=== PATIENT | female | born 1965 | race Two or more races ===

== ENCOUNTER 2016-09-07 11:05 | Outpatient (CLI) | payer BC ==
[2016-09-07 11:52] LABS: ALBUMIN 4.1 g/dL (3.4-5.0); BILIRUBIN,TOTAL 0.3 mg/dL (0.2-1.0); CREATININE 0.8 mg/dL (0.6-1.3); POTASSIUM 3.8 mmol/L (3.5-5.1); TOTAL PROTEIN, SERUM 8.5 g/dL (6.4-8.2)
[2016-09-07 11:54] LABS: BASOPHILS % (AUTO) 0.6 % (0.0-2.0); EOSINOPHILS # (AUTO) 0.1 /CMM (0.0-0.7); EOSINOPHILS % (AUTO) 1.2 % (0.0-6.0); HEMATOCRIT 41 % (33-45); HEMOGLOBIN 13.8 g/dL (11.5-14.8); LYMPHOCYTES # (AUTO) 2.2 /CMM (0.8-4.8); LYMPHOCYTES % (AUTO) 27.5 % (20.0-44.0); MEAN CORPUSCULAR HEMOGLOBIN 28 PG (26.0-33.0); MEAN CORPUSCULAR HGB CONC 34 g/dl (31.0-36.0); MEAN CORPUSCULAR VOLUME 82 fL (82-100); MONOCYTES # (AUTO) 0.5 /CMM (0.1-1.30); MONOCYTES % (AUTO) 6.1 % (2.0-12.0); NEUTROPHILS # (AUTO) 5.3 /CMM (1.8-8.9); NEUTROPHILS % (AUTO) 64.6 % (43.0-81.0); PLATELET COUNT (AUTO) 255 /CMM (150-450); RED BLOOD CELL COUNT(AUTO) 5.03 MIL/uL (4.0-5.2); WHITE BLOOD COUNT (AUTO) 8.2 K/uL (4.3-11.0)
[2016-09-07 12:00] LABS: THYROID STIMULATING HORMONE 1.751 uIU/mL (0.358-3.74)
== END 2016-09-07 23:59 | disposition home or self-care (01) ==
LOC: LAB 11:05
PROVIDERS: ATTEND Family Medicine
DX: E11.9 Type 2 diabetes mellitus without complications (principal); E03.9 Hypothyroidism, unspecified
CPT/HCPCS: 36415; 80053-TC; 80061-TC; 84436-TC; 84443-TC; 85025-TC

== ENCOUNTER 2016-11-23 09:43 | Outpatient (CLI) | payer BC | END 2016-11-23 23:59 | disposition home or self-care (01) | LOC: MRI 09:43 | PROVIDERS: ATTEND Family Medicine | DX: M76.62 Achilles tendinitis, left leg (principal); M72.2 Plantar fascial fibromatosis | CPT/HCPCS: 73721-TC ==

== ENCOUNTER 2017-10-26 20:21 | Emergency (ER) | payer BC, OTHER ==
[~2017-10-26] VITALS: Ht 167.6 cm; Wt 81.6 kg
--- NOTE | 2017-10-26 21:00 | NUR ---
TO BED 15 A 52 YO FEMALE PATIENT BIBSELF C/O "PAINFUL BUMP IN RECTUM X4 DAYS" PAIN 7 NONRADIATING. PATIENT IS AAOX4, NAD NOTED. VSS. SKIN WARM AND DRY. AMBULATORY.
[2017-10-26] MEDS ORDERED: IBUPROFEN 600 MG TABLET PO ONE ×2 (21:24→21:30)
[2017-10-26] MEDS ORDERED: oxyCODONE/APAP (5/325 MG) 1 UDTAB TABLET ONE (21:24)
[2017-10-26] MEDS ORDERED: ONDANSETRON 4 MG TAB.RAPDIS ONE (21:25)
[2017-10-26] MEDS ORDERED: TDAP [DIPH/PERTUSSIS/TET] 0.5 ML VIAL IM ONE ×2 (21:25→21:30)
[2017-10-26] MEDS ORDERED: ONDANSETRON 4 MG TAB.RAPDIS SL ONE (21:30)
[2017-10-26] MEDS ORDERED: oxyCODONE/APAP (5/325 MG) 1 UDTAB TABLET PO ONE (21:30)
[2017-10-26] MEDS ORDERED: LIDOCAINE 1% INJ 50 ML MDV IJ ONE (21:30)
--- NOTE | 2017-10-26 21:35 | NUR ---
MEDICATED PATIENT ORDERED BY MADHAVI ROBLES.
--- NOTE | 2017-10-26 22:15 | NUR ---
WEIGHER BULKER MARSII AT BEDSIDE FOR INCISION AND DRAINAGE.
--- NOTE | 2017-10-26 22:28 | NUR ---
Dressing intact clean and dry. Patient discharged to home in stable condition. Written and verbal after care instructions given. Patient verbalizes understanding of instruction. Patient is ambulatory with steady gait, vss. nad noted. No further complaints.
[2017-10-26 22:29] VITALS: BP 148/87
== END 2017-10-26 22:35 | disposition home or self-care (01) ==
LOC: ER 20:23
DX: L05.01 Pilonidal cyst with abscess (principal); E03.9 Hypothyroidism, unspecified; E11.9 Type 2 diabetes mellitus without complications; Z90.49 Acquired absence of other specified parts of digestive tract
CPT/HCPCS: 90715; A4606; A6253; A6402; A6403; A6407; Q0162; Z7610

== ENCOUNTER 2017-11-01 19:44 | Emergency (ER) | payer BC, OTHER ==
[~2017-11-01] VITALS: Ht 160 cm; Wt 74.8 kg
[2017-11-01 20:03] VITALS: BP 130/80
== END 2017-11-01 20:34 | disposition home or self-care (01) ==
LOC: ER 19:44
DX: Z48.00 Encounter for change or removal of nonsurgical wound dressing (principal); L05.01 Pilonidal cyst with abscess; Z90.49 Acquired absence of other specified parts of digestive tract
CPT/HCPCS: A4606; A6407; Z7502; Z7610

== ENCOUNTER 2019-04-05 08:47 | Outpatient (CLI) | payer BC | END 2019-04-05 23:59 | disposition home or self-care (01) | LOC: RAD 08:47 | PROVIDERS: ATTEND Family Medicine | DX: M19.042 Primary osteoarthritis, left hand (principal); M19.041 Primary osteoarthritis, right hand | CPT/HCPCS: 73130-TC ==

== ENCOUNTER 2020-09-26 10:35 | Outpatient (CLI) | payer BC | END 2020-09-26 23:59 | disposition home or self-care (01) | LOC: WOU 10:35 | PROVIDERS: ATTEND Surgery | DX: N63.20 Unspecified lump in the left breast, unspecified quadrant (principal); R92.2 Inconclusive mammogram; Z80.3 Family history of malignant neoplasm of breast; Z80.41 Family history of malignant neoplasm of ovary; E11.9 Type 2 diabetes mellitus without complications; Z79.84 Long term (current) use of oral hypoglycemic drugs | CPT/HCPCS: G0463 ==

== ENCOUNTER 2020-10-10 10:50 | Outpatient (CLI) | payer BC | END 2020-10-10 23:59 | disposition home or self-care (01) | LOC: WOU 10:50 | PROVIDERS: ATTEND Surgery | DX: N63.20 Unspecified lump in the left breast, unspecified quadrant (principal); R92.2 Inconclusive mammogram; E11.9 Type 2 diabetes mellitus without complications; Z79.84 Long term (current) use of oral hypoglycemic drugs; I10 Essential (primary) hypertension | CPT/HCPCS: G0463 ==

== ENCOUNTER 2020-11-14 11:00 | Outpatient (CLI) | payer BC | END 2020-11-14 23:59 | disposition home or self-care (01) | LOC: WOU 11:00 | PROVIDERS: ATTEND Surgery | DX: R92.2 Inconclusive mammogram (principal); N63.20 Unspecified lump in the left breast, unspecified quadrant; I10 Essential (primary) hypertension; E11.9 Type 2 diabetes mellitus without complications; Z79.84 Long term (current) use of oral hypoglycemic drugs | CPT/HCPCS: G0463 ==

== ENCOUNTER 2021-05-26 09:41 | Outpatient (CLI) | payer BC | END 2021-05-26 23:59 | disposition home or self-care (01) | LOC: RAD 09:41 | PROVIDERS: ATTEND Family Medicine | DX: S09.93XA Unspecified injury of face, initial encounter (principal); R51.9 Headache, unspecified; I67.2 Cerebral atherosclerosis; X58.XXXA Exposure to other specified factors, initial encounter; Y93.89 Activity, other specified; Y92.89 Other specified places as the place of occurrence of the external cause; Y99.8 Other external cause status | CPT/HCPCS: 70150-TC; 70450-TC ==